=== PATIENT | female | born 1960 | race African-American/Black ===

== ENCOUNTER 2018-04-20 17:05 | Emergency (ER) | payer MEDICAID ==
[~2018-04-20] VITALS: Ht 162.6 cm; Wt 100.0 kg
[2018-04-20] MEDS ORDERED: CLOP75TA16 PO (17:12)
[2018-04-20] MEDS ORDERED: ASPI-986 PO (17:12)
[2018-04-20 19:34] VITALS: BP 150/86
== END 2018-04-20 20:17 | disposition home or self-care (01) ==
LOC: ER 17:05
DX: J45.901 Unspecified asthma with (acute) exacerbation (principal); F41.9 Anxiety disorder, unspecified; Z79.82 Long term (current) use of aspirin; Z98.890 Other specified postprocedural states; Z88.8 Allergy status to other drugs, medicaments and biological substances
CPT/HCPCS: 99283